=== PATIENT | female | born 1970 | race Caucasian/White ===

== ENCOUNTER → 2020-02-29 09:39 | Outpatient (CLI) | payer BC, SELFPAY | PROVIDERS: PCP Family Medicine; Visit Provider Nurse Practitioner | DX: R00.2 Palpitations (principal); R07.9 Chest pain, unspecified; F41.1 Generalized anxiety disorder | CPT/HCPCS: 93225; 93226 ==

== ENCOUNTER → 2020-03-09 09:03 | Outpatient (CLI) | payer BC, SELFPAY ==
--- NOTE | 2020-03-09 | CA_ITS ---
APPROVED REPORT Technologist: Shaina Darby, Ht: 5 ft 8 in Wt: 143 lbs BSA: 1.77 m2 HR: 73 bpm BP: 150/92 mmHg Rhythm: NSR Indications: Chest Pain Medical History Medications: Sudafed Allergies: No known drug allergies Stress Test Details Test: Matt HR Resting HR: 82 bpm Max Heart Rate (APMHR): 169 bpm Max HR Achieved: 176 bpm Target HR (85% APMHR): 143 bpm % of APMHR: 104 Recovery HR: 152 bpm BP Resting BP: 150/92 mmHg Max BP: 172/90 mmHg Recovery BP: 172.0/90.0 mmHg ECG Resting ECG: NSR Clinical Exercise duration: 09:09 min Highest Stage Achieved: Exercise capacity: 10.1 METs Stress ECG Conclusion Matt protocol completed. Exercised 09:09. Mets 10.1. Max BP 172/90. Max HR 176 bpm. Stopped due to SOB. No CP or SOB at peak exercise, SOB resolved in recovery. Occasional PVC, less than 1mm ST depression. 1 GXT only 2 Hypertensive response 3 Excellent physical capacity 4 No CP 5 Occasional PVC 6 Less than 1.5mm ST depression Test Summary REST . . . . . . . Standing REST . . . . . . . Sitting REST 04:19 0.0 0.0 82 . 150/ 92 . . Stage 1 01:00 10.0 1.7 98 . . . . Stage 1 02:00 10.0 1.7 108 . . . . Stage 1 03:00 10.0 1.7 119 . 148/ 90 . . Stage 2 01:00 12.0 2.5 132 . . . . Stage 2 02:00 12.0 2.5 146 . 162/ 90 . . Stage 2 03:00 12.0 2.5 155 . 162/ 90 . . Stage 3 01:00 14.0 3.4 166 . . . . Stage 3 02:00 14.0 3.4 169 . . . . Stage 3 03:00 14.0 3.4 174 . 170/ 90 . . Stage 4 00:09 16.0 4.2 172 . . . Stop exercise at 09:09 RECOVERY 01:00 0.0 0.0 160 . . . . RECOVERY 02:00 0.0 0.0 133 . 172/ 90 . . RECOVERY 03:00 0.0 0.0 114 . 154/ 91 . . RECOVERY 04:00 0.0 0.0 98 . 166/ 98 . . RECOVERY 04:04 0.0 0.0 100 . 166/ 98 . . Electronically signed by : Sg Denny, 03/09/2020 17:43:23
== END ==
PROVIDERS: PCP Family Medicine; Visit Provider Family Medicine
DX: R00.2 Palpitations (principal); R07.9 Chest pain, unspecified; F41.1 Generalized anxiety disorder
CPT/HCPCS: 93017

== ENCOUNTER → 2020-04-05 11:07 | Outpatient (CLI) | payer BC, SELFPAY ==
[2020-04-05 12:56] LABS: Coronavirus 19 IgG Antibody Negative (Negative); Coronavirus 19 IgM Antibody Negative (Negative)
== END ==
PROVIDERS: Visit Provider Internal Medicine Gastroenterology
DX: Z01.818 Encounter for other preprocedural examination (principal); Z12.11 Encounter for screening for malignant neoplasm of colon
CPT/HCPCS: 36415; 86328

== ENCOUNTER 2020-04-06 08:34 | Day surgery (SDC) | payer BC, SELFPAY ==
[2020-04-02 15:19] VITALS: BMI 21.4
[2020-04-06 08:51] VITALS: BP 140/76; PULSE 67; RESP 18; TEMP 36.6; O2SAT 100
[2020-04-06 09:28] VITALS: O2SAT 100
--- NOTE | 2020-04-06 09:28 | HMH.ANESCL ---
[facility] Anesthesia Checklist - Patient Identification Patient Identification: Arm Band, Verbal (Name & ) - Structural Data Admitted From: Home Planned Operative Procedure/s: Colonoscopy Consent for Planned Operative Procedure(s) Verified: Yes Verified Documents: Surgical Consent, History and Physical - NPO Status Verified Time NPO: 00:00 - Chart Verification Results Verified: None - Additional verifications Anesthesia Reactions: No - Airway Assessment C-Spine Mobility Assessed: Yes TMJ Mobility Assessed: Yes Dentition: Good Dentition - Neurological Assessment Level of Consciousness: Awake, Alert, Appropriate, Follows Commands Hx Seizures: No Numbness or tingling in extremities: No - Anesthesia Plan Anesthesia Risk discussed: Yes Anesthesia Plan: Verified ASA Class: II Anesthesia Type: MAC [facility] History I have reviewed the patient's past medical history: Yes Medical History: Denies:: Cancer, Diabetes Mellitus Type 1, Diabetes Mellitus Type 2, Internal Pacemaker, MRSA, Seizures *Have you ever received a pneumonia vaccine?: No *Have you received a flu vaccine this season?: No Anesthesia experience/problems:: None Other Surgeries: Yes: Cholecystectomy. No: Pacemaker Amputation: No Fractures: No - *Social History Last grade of school completed: Advanced degree Smoking Status: Current every day smoker Tobacco Type: e-cigarettes # Packs/Day (cigarettes): 1 Alcohol Intake: current Alcohol Intake Frequency:: a few times a month Substance Use Type: denies use *Occupational Status:: employed Housing: house Household Members: spouse *Travel in the last 8 weeks: None Family Hx:: Adopted
[2020-04-06 10:08] VITALS: BP 105/66; PULSE 68; RESP 16; TEMP 36.7; O2SAT 99
--- NOTE | 2020-04-06 10:08 | HMH.PROC ---
[facility] Procedure Note Procedure Note:: Colonoscopy Procedure Report: Colonoscopy with cold snare polypectomy, snare cautery and Endo Clip placement Endoscopist: Andres Navarro II, MD Referring physician: Pippa TRINIDAD Date of Procedure: April 06, 2020 Equipment: Olympus 180 variable stiffness pediatric colonoscope Sedation: MAC sedation Indication: Mrs. Mortensen is a 49-year-old female who is here for initial screening colonoscopy. The patient reports no abdominal pain, weight loss, change in her bowel habits or rectal bleeding. She reports no family history of colon cancer and does not know her family history since she was adopted. She does have some mild intermittent chronic constipation which is unchanged. Procedure: Prior to the procedure, a history and physical exam was performed, and patient's medications and allergies were reviewed. The risks, benefits and alternatives of the sedation and procedure were discussed with the patient. All questions were answered and informed consent was obtained. The patient was brought to the procedure room. Patient identification and proposed procedure were verified by the physician and the nurse. The patient was placed in a left lateral decubitus position and the scope was passed under direct vision. Throughout the procedure, the patient's blood pressure, pulse, and oxygen saturations were monitored continuously. The colonoscopy was accomplished without difficulty. The patient tolerated the procedure well. Findings: On digital rectal examination there was normal rectal tone. There were no external hemorrhoids. The colonoscope was introduced through the anal canal to the rectum and advanced to the cecum. The ileocecal valve and appendiceal orifice were identified. The scope was advanced a short distance into the ileum which appeared grossly normal. The scope was then withdrawn into the colon. The cecum, ascending and transverse colon and mucosa were grossly normal. There were 4 colon polyps (descending x2 (3 and 11 mm) and sigmoid x2 (8 and 12 mm)). The smallest was removed via cold snare polypectomy. The larger polyps were removed via snare cautery. The polyp with the widest base in the sigmoid colon had some venous oozing at the polypectomy site so 2 endoclips were placed over the polypectomy site to provide hemostasis. There were extensive scattered diverticuli throughout the descending and sigmoid colon (LEFT colon). The rectum itself was normal. Upon retroflexion within the rectum there were grade 1 internal hemorrhoids. The preparation was good throughout with [place] Preparation Score of 8 out of 9 (some plant residue). The cecal time was 20 minutes. Impression: 1. Colon polyps x4 2. Extensive left-sided diverticulosis 3. Grade 1 internal hemorrhoids Plan: I will follow up the polyp pathology and recommend repeat colonoscopy again in likely 3 years based upon the size of these polyps and the adenomatous polyp histology. I would encourage dietary measures and fiber bowel regimen on a long-term daily maintenance basis.
[2020-04-06 10:18] VITALS: BP 99/54; PULSE 67; RESP 16; O2SAT 99
[2020-04-06 10:28] VITALS: BP 91/62; PULSE 63; RESP 16; O2SAT 98
[2020-04-06 10:38] VITALS: BP 101/65; PULSE 68; RESP 16; O2SAT 99
== END 2020-04-06 10:38 | disposition home or self-care (01) ==
LOC: OUTP 08:35
PROVIDERS: PCP Family Medicine; Visit Provider Internal Medicine Gastroenterology
PROC: 0DJD8ZZ Inspection of Lower Intestinal Tract, Via Natural or Artificial Opening Endoscopic (ICD-10-PCS; CPT 45378; principal; 2020-04-06 09:30)
DX: Z12.11 Encounter for screening for malignant neoplasm of colon (principal); K63.5 Polyp of colon; K57.30 Diverticulosis of large intestine without perforation or abscess without bleeding; K64.0 First degree hemorrhoids; Z90.49 Acquired absence of other specified parts of digestive tract; Z72.0 Tobacco use
CPT/HCPCS: 45385

== ENCOUNTER → 2020-05-26 08:58 | Outpatient (CLI) | payer BC, SELFPAY ==
[2020-05-26 09:55] LABS: Coronavirus 19 IgG Antibody Negative (Negative); Coronavirus 19 IgM Antibody Negative (Negative)
== END ==
PROVIDERS: Visit Provider Internal Medicine Gastroenterology
DX: Z01.818 Encounter for other preprocedural examination (principal); Z13.810 Encounter for screening for upper gastrointestinal disorder
CPT/HCPCS: 36415; 86328

== ENCOUNTER 2020-05-28 07:01 | Day surgery (SDC) | payer BC, SELFPAY ==
[2020-05-22 10:01] VITALS: BMI 22.5
[2020-05-28] VITALS (7 sets, daily range): BP systolic 99–122; BP diastolic 50–63; PULSE 61–88; RESP 18–20; TEMP 36.3–36.7; O2SAT 96–99
--- NOTE | 2020-05-28 08:04 | HMH.ANESCL ---
[facility] Anesthesia Checklist - Structural Data Admitted From: Home Planned Operative Procedure/s: egd Consent for Planned Operative Procedure(s) Verified: Yes - Additional verifications Anesthesia Reactions: No - Airway Assessment C-Spine Mobility Assessed: Yes TMJ Mobility Assessed: Yes Dentition: Good Dentition - Neurological Assessment Level of Consciousness: Awake, Alert, Appropriate - Anesthesia Plan Anesthesia Risk discussed: Yes Anesthesia Plan: Verified ASA Class: I Anesthesia Type: MAC [facility] History I have reviewed the patient's past medical history: Yes Medical History: Denies:: Cancer, Diabetes Mellitus Type 1, Diabetes Mellitus Type 2, Internal Pacemaker, MRSA, Seizures *Have you ever received a pneumonia vaccine?: No *Have you received a flu vaccine this season?: Yes Anesthesia experience/problems:: none Other Surgeries: Yes: No Previous Surgery, Cholecystectomy. No: Pacemaker Amputation: No Fractures: No - *Social History Last grade of school completed: Some college Smoking Status: Current every day smoker Tobacco Type: e-cigarettes # Packs/Day (cigarettes): 1 Alcohol Intake: never Alcohol Intake Frequency:: a few times a month Substance Use Type: denies use *Occupational Status:: employed Housing: house Household Members: spouse, children *Travel in the last 8 weeks: None Family Hx:: Adopted
--- NOTE | 2020-05-28 08:06 | P.PCN_ITS ---
[facility] Procedure Note Procedure Note:: Upper Endoscopy Procedure Report: Esophagogastroduodenoscopy with cold biopsies and TTS balloon dilation Endoscopost: Andres Navarro II, MD Referring Physician: Pippa TRINIDAD Date of Procedure: May 28, 2020 Equipment: Olympus GIF 180 standard upper endoscope Sedation: MAC sedation Indications: Mrs. Mortensen is a 50-year-old female with epigastric abdominal discomfort, fullness and dyspepsia. She reports this as pressure and feels as if everything gets hung up in the mid epigastrium. She has some bloating, nausea and early satiety. She did have a colonoscopy with ma in March 2020 and had 4 colon polyps (tubular adenomas x4) which were removed. She also had diverticulosis. She does state that her bowel function has improved with the fiber bowel regimen (MiraLAX plus Konsyl). The patient does report choking and some dysphagia. She has rare heartburn. This is her first upper endoscopy performed for diagnostic purposes. Procedure: Prior to the procedure, a history and physical exam was performed, and patient's medications and allergies were reviewed. The risks, benefits and alternatives of the sedation and procedure were discussed with the patient. All questions were answered and informed consent was obtained. The patient was brought to the procedure room. Patient identification and proposed procedure were verified by the physician and the nurse. The patient was placed in a left lateral decubitus position and the scope was passed under direct vision. Throughout the procedure, the patient's blood pressure, pulse, and oxygen saturations were monitored continuously. The upper GI endoscopy was accomplished without difficulty. The patient tolerated the procedure well. Findings: The scope was passed directly into the upper esophagus and advanced to the third portion of the duodenum. The post bulbar duodenum and duodenal bulb were normal with normal mucosa and conniventes. The scope was withdrawn through a normal duodenal bulb and pylorus into the stomach. There was bile reflux with mild linear reactive gastropathy of the antrum and body of the stomach. The remainder of the antrum, body and fundus of the stomach were grossly normal. Upon retroflexion there was a small to medium size 2 to 3 cm sliding hiatal hernia. 2 biopsies were taken in the antrum and along the lesser curvature for histology to rule out gastritis and/or H pylori. The scope was then withdrawn into the esophagus. There was no evidence of reflux esophagitis or Robb's. There was no Schatzki's ring. There were tertiary contractions and evidence of moderate esophageal dysmotility. The entire esophagus was dilated to 60 Singaporean/20 mm with a TTS hydrostatic balloon. There was some resistance at the cricopharyngeus. The remainder of the esophageal mucosa was normal. Impression: 1. Cricopharyngeal spasm status post dilation to 20 mm 2. Nonerosive GERD with moderate esophageal dysmotility and 2 to 3 cm sliding hiatal hernia 3. Bile reflux with mild linear reactive gastropathy Plan: I will follow up the biopsies. 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
== END 2020-05-28 09:20 | disposition home or self-care (01) ==
LOC: OUTP 07:02
PROVIDERS: PCP Family Medicine; Visit Provider Internal Medicine Gastroenterology
PROC: 0DJ08ZZ Inspection of Upper Intestinal Tract, Via Natural or Artificial Opening Endoscopic (ICD-10-PCS; CPT 43235; principal; 2020-05-28 08:00)
DX: J39.2 Other diseases of pharynx (principal); K21.9 Gastro-esophageal reflux disease without esophagitis; K22.4 Dyskinesia of esophagus; K44.9 Diaphragmatic hernia without obstruction or gangrene; K31.9 Disease of stomach and duodenum, unspecified; Z86.010 Personal history of colon polyps; Z72.0 Tobacco use
CPT/HCPCS: 43239; 43249; C1726

== ENCOUNTER → 2020-08-27 11:05 | Outpatient (POV) | payer BC, SELFPAY | PROVIDERS: Visit Provider Nurse Practitioner Family | DX: Z00.00 Encounter for general adult medical examination without abnormal findings (principal) ==

== ENCOUNTER → 2022-12-02 16:15 | Outpatient (CLI) | payer BC, SELFPAY ==
--- NOTE | 2022-12-02 16:23 | MM_ITS ---
PROCEDURE INFORMATION: Exam: Bilateral Screening 3D Mammography Exam date and time: 12/02/2022 4:11 PM Age: 52 years old Clinical indication: Screening examination TECHNIQUE: Imaging protocol: Bilateral Screening tomosynthesis and 2D mammography including computer-aided detection (CAD) when performed. COMPARISON: No relevant prior studies available. FINDINGS: MAMMOGRAPHY: Breast composition: The breast is heterogeneously dense, which may obscure small masses. Mass: 1.1 cm mass within the lower outer anterior left breast should be further assessed with spot views in CC/MLO projection. Ultrasound should also be performed. Architectural distortion: No new or suspicious architectural distortion. Calcifications: No new or suspicious calcifications are present Asymmetric density: No new or suspicious asymmetric density is present Skin thickening: None. Axillary adenopathy: None. IMPRESSION: 1.1 cm mass within the lower outer anterior left breast should be further assessed with spot views in CC/MLO projection. Ultrasound should also be performed. ASSESSMENT: BI-RADS category 0: Incomplete-need additional imaging evaluation and/or prior mammograms for comparison.
== END ==
PROVIDERS: PCP Family Medicine; Visit Provider Family Medicine
DX: Z12.31 Encounter for screening mammogram for malignant neoplasm of breast (principal)
CPT/HCPCS: 77063; 77067

== ENCOUNTER 2024-03-09 16:10 | Outpatient (CLI) | payer BC, SELFPAY ==
--- NOTE | 2024-03-09 16:20 | XR_ITS ---
PROCEDURE INFORMATION: Exam: XR Sacrum and Coccyx, 2 or More Views Exam date and time: 03/09/2024 4:50 PM Age: 53 years old Clinical indication: Injury or trauma; Fall; Other: Pain; Additional info: Fall, back pain TECHNIQUE: Imaging protocol: XR of the sacrum and coccyx, 2 or more views. COMPARISON: CR XR MULTIPLE SPINE 6+V 03/09/2024 4:50 PM FINDINGS: Bones/joints: The osseous structures are intact, with no signs of acute fracture, dislocation, or malalignment. Age-related degenerative changes are observed. There is no evidence of abnormal bone density or destructive lesions. Soft tissues: The soft tissues appear within normal limits. IMPRESSION: At the time of imaging, the study shows no acute osseous abnormalities but does reveal signs of age-related degenerative changes.
--- NOTE | 2024-03-09 16:38 | XR_ITS ---
PROCEDURE INFORMATION: Exam: XR Entire Spine Exam date and time: 03/09/2024 4:50 PM Age: 53 years old Clinical indication: Injury or trauma; Fall; Other: Pain; Additional info: T spine L spine c spine TECHNIQUE: Imaging protocol: XR of the entire spine. Evaluation for scoliosis or surgical evaluation. Views: 6 or more views. COMPARISON: CR XR COCCYX 2V 03/09/2024 4:50 PM FINDINGS: Bones/joints: There is exaggeration of the thoracic spine curvature. No evidence of acute spondylolisthesis or vertebral subluxation. Vertebral body heights are generally preserved, but some endplate sclerosis and anterior osteophytes are noted at multiple levels. Narrowing of multiple intervertebral disc spaces observed, indicative of degenerative disc disease. Hypertrophic changes are seen in the facet joints, consistent with osteoarthritis. No obvious abnormalities seen in the prevertebral and paravertebral soft tissues. No fractures or bony lesions identified. No abnormalities seen in adjacent osseous structures. Intraperitoneal space: There are right upper quadrant surgical clips suggesting prior cholecystectomy. IMPRESSION: Degenerative changes without acute abnormality detected.
== END 2024-03-09 23:59 | disposition home or self-care (01) ==
LOC: RAD 16:11
PROVIDERS: PCP Nurse Practitioner; Visit Provider Nurse Practitioner
DX: M54.50 Low back pain, unspecified
CPT/HCPCS: 72084; 72220